=== PATIENT | male | born 1985 | race Caucasian/White ===

== ENCOUNTER 2018-05-28 19:56 | Emergency (ER) | payer OTHER ==
[~2018-05-28] VITALS: Ht 177.8 cm; Wt 76.2 kg
[~2018-05-28 19:56] MED LIST: DENIES MEDS
[2018-05-28 20:18] VITALS: BP 138/78
[2018-05-28] MEDS ORDERED: predniSONE 20 MG TABLET PO ONE (21:30)
[2018-05-28] MEDS ORDERED: diphenhydrAMINE HCL 50 MG/ML VIAL IM ONE (21:30)
[2018-05-28] MEDS ORDERED: diphenhydrAMINE HCL 50 MG/ML VIAL ONE (21:34)
== END 2018-05-28 21:58 | disposition home or self-care (01) ==
LOC: ER 19:57
DX: B35.4 Tinea corporis (principal); F17.200 Nicotine dependence, unspecified, uncomplicated
CPT/HCPCS: 96372; 99283; A4606; J1200; Z7610

== ENCOUNTER 2018-06-06 22:31 | Emergency (ER) | payer OTHER ==
[~2018-06-06] VITALS: Ht 177.8 cm; Wt 75.7 kg
[2018-06-06] MEDS ORDERED: EPINEPHRINE (1:1000) 1 MG/ML AMPUL ONE (23:16)
[2018-06-06] MEDS ORDERED: FAMOTIDINE (20 MG) 20 MG TABLET ONE (23:16)
[2018-06-06] MEDS ORDERED: DEXAMETHASONE SOD PHOSPHATE 4 MG/ML VIAL ONE (23:16)
[2018-06-06] MEDS ORDERED: DEXAMETHASONE SOD PHOSPHATE 4 MG/ML VIAL IM ONE (23:30)
[2018-06-06] MEDS ORDERED: FAMOTIDINE (20 MG) 20 MG TABLET PO ONE (23:30)
[2018-06-06] MEDS ORDERED: EPINEPHRINE (1:1000) MDV 30 MG/30ML VIAL SUBCUT ONE (23:30)
[2018-06-06 23:53] VITALS: BP 118/58
== END 2018-06-06 23:52 | disposition home or self-care (01) ==
LOC: ER 22:34
DX: L50.8 Other urticaria (principal); F17.200 Nicotine dependence, unspecified, uncomplicated; Z87.09 Personal history of other diseases of the respiratory system
CPT/HCPCS: 96372 ×2; 99284; A4606; J0171 ×2; J1100; Z7610

== ENCOUNTER 2018-06-12 22:41 | Inpatient (IN) | payer OTHER ==
[~2018-06-12] VITALS: Ht 177.8 cm; Wt 75.8 kg
--- NOTE | 2018-06-12 22:41 | NUR ---
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 PT STATES HE STOPPED STEROID MEDICATION THAT WAS GIVEN TO HIM AND THE HIVES CAME BACK. PT IS TACHYCARDIC AND HYPERTENSIVE BUT OTHERWISE VSS. PATIENT IS ABLE TO BREATHING WNL BUT WHEN DOING SO THERE IS PAIN ON INSPIRATION. HIVES GENERALIZED ON BODY WITH REDNESS. WILL CONTINUE TO MONITOR FOR ANY CHANGES DURING THE SHIFT.
--- NOTE | 2018-06-12 22:42 | NUR ---
ER MD TYLER AT BEDSIDE FOR EVAL
[2018-06-12] MEDS ORDERED: methylPREDNISolone SOD SUCC 125 MG/2ML VIAL IV ONE (23:00)
[2018-06-12] MEDS ORDERED: MAG HYDROX/AL HYDROX/SIMETH 30 ML UDC PO ONE (23:00)
[2018-06-12] MEDS ORDERED: diphenhydrAMINE HCL 50 MG/ML VIAL IV ONE (23:00)
[2018-06-12] MEDS ORDERED: FAMOTIDINE/PF INJ 20 MG/2 ML VIAL IV ONE ×2 (23:00→23:08)
[2018-06-12] MEDS ORDERED: MORPHINE SULFATE INJ 2 MG/ML DISP.SYRIN IV ONE (23:00)
[2018-06-12] MEDS ORDERED: IV NS 0.9% 1,000 ML BAG IV ONE (23:00)
[2018-06-12] MEDS ORDERED: methylPREDNISolone SOD SUCC 125 MG/2ML VIAL ONE (23:01)
[2018-06-12] MEDS ORDERED: diphenhydrAMINE HCL 50 MG/ML VIAL ONE (23:01)
[2018-06-12] MEDS ORDERED: MORPHINE SULFATE INJ 4 MG/ML DISP.SYRIN ONE (23:01)
--- NOTE | 2018-06-12 23:05 | NUR ---
EKG AT BEDSIDE
[2018-06-12] MEDS ORDERED: MAG HYDROX/AL HYDROX/SIMETH 30 ML UDC ONE (23:08)
[2018-06-12 23:11] LABS: BASOPHILS % (AUTO) 0.2 % (0.0-2.0); EOSINOPHILS % (AUTO) 0.1 % (0.0-6.0); HEMATOCRIT 45 % (39-51); HEMOGLOBIN 14.6 g/dL (13.5-17.5); LYMPHOCYTES # (AUTO) 3.6 /CMM (0.8-4.8); LYMPHOCYTES % (AUTO) 32.2 % (20.0-44.0); MEAN CORPUSCULAR HEMOGLOBIN 31 PG (26.0-33.0); MEAN CORPUSCULAR HGB CONC 32 g/dl (31.0-36.0); MEAN CORPUSCULAR VOLUME 96 fL (80-96); MONOCYTES # (AUTO) 0.4 /CMM (0.1-1.30); MONOCYTES % (AUTO) 3.2 % (2.0-12.0); NEUTROPHILS # (AUTO) 7.2 /CMM (1.8-8.9); NEUTROPHILS % (AUTO) 64.3 % (43.0-81.0); PLATELET COUNT (AUTO) 217 /CMM (150-450); RDW COEFFICIENT OF VARIATION 12.9 (11.5-15.0); WHITE BLOOD COUNT (AUTO) 11.2 K/uL (4.3-11.0)
--- NOTE | 2018-06-12 23:12 | NUR ---
BLOOD SENT TO LAB WITH FLOUR WORKER
--- NOTE | 2018-06-12 23:12 | NUR ---
DR. KATZ PAGED FOR CARDIOLOGY CONSULT.
[2018-06-12 23:33] LABS: CALCIUM, SERUM 8.5 mg/dL (8.5-10.1); CARBON DIOXIDE 25 mmol/L (21-32); CHLORIDE 102 mmol/L (98-107); GLUCOSE 136 mg/dL (74-106); SODIUM SERUM 136 mmol/L (136-145); UREA NITROGEN, BLOOD 22 mg/dL (7-18)
[2018-06-12 23:41] LABS: TROPONIN I < 0.017 ng/mL (0.00-0.056)
[2018-06-12] MEDS ORDERED: KETOROLAC TROMETHAMINE INJ 30 MG/ML VIAL ONE (23:44)
[2018-06-13] VITALS (8 sets, daily range): BP systolic 113–139; BP diastolic 53–76
[2018-06-13] MEDS ORDERED: KETOROLAC TROMETHAMINE INJ 30 MG/ML VIAL IV ONE
[2018-06-13] MEDS ORDERED: ZOLPIDEM TARTRATE 5 MG TABLET PO PRN
[2018-06-13] MEDS ORDERED: ONDANSETRON HCL/PF 4 MG/2 ML VIAL IVP PRN
[2018-06-13] MEDS ORDERED: MORPHINE SULFATE INJ 2 MG/ML DISP.SYRIN IV PRN
[2018-06-13] MEDS ORDERED: Z GUARD REMEDY 2 OZ OINT TP PRN
[2018-06-13] MEDS ORDERED: ACETAMINOPHEN 325 MG TABLET PO PRN
[2018-06-13] MEDS ORDERED: MAG HYDROX/AL HYDROX/SIMETH 30 ML UDC PO PRN
--- NOTE | 2018-06-13 00:16 | NUR ---
TELE [id number]
--- NOTE | 2018-06-13 01:05 | NUR ---
REPORT GIVEN TO TEJAL
--- NOTE | 2018-06-13 01:28 | NUR ---
ADMISSION NOTES: RECEIVED REPORT FROM JOSE BELL. PT CAME TO ER DUE TO HIVES FOR 2WEEKS, WAS PRESCRIBED WITH STEROID BY BARREL LINER, STOPPED TAKING STEROIDS YESTERDAY AND HIVES CAME BACK ASSOCIATED WITH SOB AND CHEST PAIN UPON INSPIRATION. PT WAS BROUGHT TO THE UNIT VIA GURNEY, PLACED IN BED, KEPT COMFORTABLE, PLACED ON TELE MONITORING, SINUS RHYTHM WITH ST ELEVATION, MD AWARE, SAME RESULT WITH EKG IN ER. PT DENIES ANY CHEST PAIN OR SOB AT THIS TIME, STATED HE FELT A LOT BETTER AFTER TAKING THE MEDICATION GIVEN IN E.R. IV ACCESS ON RIGHT AC G18 PATENT AND FLUSHING WELL, NO S/S OF REDNESS OR INFILTRATION NOTED. SKIN ASSESSMENT PERFORMED AND GENERALIZED HIVES NOTED MORE SPECIFICALLY ON PT'S BACK, PHOTOS TAKEN ATTACHED TO CHART. VS TAKEN AND RECORDED, ORIENTED PT TO UNIT POLICY AND HOURLY ROUNDING. DISCUSSED PLAN OF CARE TO THE PT. INVENTORY OF BELONGING COMPLETED BY SILVESTRE ROSEN. SAFETY PRECAUTIONS FOR FALL INITIATED, CALL LIGHT IN REACH, WILL CONTINUE MONITORING PT.
[2018-06-13] MEDS ORDERED: IBUPROFEN 600 MG TABLET PO PRN (02:00)
[2018-06-13] MEDS ORDERED: diphenhydrAMINE HCL 50 MG/ML VIAL IV PRN (02:00)
[2018-06-13] MEDS: IV NS 0.9% 1,000 ML IV PRN ×2 (02:07→16:41)
--- NOTE | 2018-06-13 03:01 | NUR ---
RN NOTES: SEEN PT SLEEPING AT THIS TIME, RESPIRATION EVEN AND UNLABORED, NO FACIAL GRIMACE NOTED
--- NOTE | 2018-06-13 04:00 | NUR ---
RN NOTES: PT REMAINS SINUS RHYTHM WITH ST ELEVATION, PT AWAKE, DENIES ANY CHEST PAIN OR SOB AT THIS TIME, HE STATED HE'S FEELING BETTER, WILL CONTINUE MONITORING PT
--- NOTE | 2018-06-13 05:30 | NUR ---
RN NOTES: NOTED ON SINUS RHYTHM HR [address] ELEVATION, MD AWARE, VS STABLE, PT DENIES ANY CHEST PAIN OR SHORTNESS OF BREATH, WILL CONTINUE MONITORING PT.
[2018-06-13 06:43] LABS: HEMATOCRIT 41 % (39-51); HEMOGLOBIN 13.7 g/dL (13.5-17.5); LYMPHOCYTES # (AUTO) 0.7 /CMM (0.8-4.8); LYMPHOCYTES % (AUTO) 6.9 % (20.0-44.0); MEAN CORPUSCULAR HEMOGLOBIN 32 PG (26.0-33.0); MEAN CORPUSCULAR HGB CONC 34 g/dl (31.0-36.0); MEAN CORPUSCULAR VOLUME 95 fL (80-96); MONOCYTES # (AUTO) 0.1 /CMM (0.1-1.30); NEUTROPHILS # (AUTO) 9.5 /CMM (1.8-8.9); NEUTROPHILS % (AUTO) 92.1 % (43.0-81.0); PLATELET COUNT (AUTO) 173 /CMM (150-450); RDW COEFFICIENT OF VARIATION 13.1 (11.5-15.0); RED BLOOD CELL COUNT(AUTO) 4.26 MIL/uL (4.5-6.0); WHITE BLOOD COUNT (AUTO) 10.3 K/uL (4.3-11.0)
--- NOTE | 2018-06-13 06:44 | NUR ---
RN CLOSING NOTES: PT IN BED, AWAKE, DENIES ANY CHEST PAIN OR DISCOMFORT AT THIS TIME, DENIES ANY SOB, REMAINS ON RA, RESPIRATION EVEN AND UNLABORED, STILL WITH GENERALIZED HIVES, REMAINS SINUS RHYTHM WITH MILD ST ELEVATION HR 67. MD AWARE OF PT'S HEART RHYTHM. IV ACCESS REMAINS PATENT AND FLUSHING WELL, INFUSING WITH NS AT 75ML/HR. FOR CARDIO CONSULT TODAY AND 2D ECHO. VS REMAINS STABLE, NEEDS ATTENDED, SAFETY PRECAUTIONS FOR FALL REMAINS ENGAGED, CALL LIGHT IN REACH, WILL ENDORSE TO DAY RN FOR CONTINUITY OF CARE.
[2018-06-13 06:53] LABS: CALCIUM, SERUM 8.7 mg/dL (8.5-10.1); CARBON DIOXIDE 23 mmol/L (21-32); CHLORIDE 104 mmol/L (98-107); CREATININE 0.9 mg/dL (0.6-1.3); GLUCOSE 162 mg/dL (74-106); MAGNESIUM 2.1 mg/dL (1.8-2.4); PHOSPHORUS 2.4 mg/dL (2.5-4.9); POTASSIUM 4.9 mmol/L (3.5-5.1); SODIUM SERUM 136 mmol/L (136-145); UREA NITROGEN, BLOOD 17 mg/dL (7-18)
[2018-06-13 07:14] LABS: CHOLESTEROL 149 mg/dL (<200); HDL CHOLESTEROL 63 mg/dL (40-60); LDL 78 mg/dL (0-99); TRIGLYCERIDES 56 mg/dL (30-150)
--- NOTE | 2018-06-13 07:15 | NUR ---
RN OPENING NOTES PATIENT RECEIVED AWAKE ALERT AND VERBALLY RESPONSIVE, ABLE TO MAKE NEEDS KNOWN. RESPIRATIONS EVEN AND UNLABORED, DENIES ANY PAIN OR DISCOMFORT AT THIS TIME. IV ACCESS TO RAC PATENT AND INTACT NO REDNESS OR INFILTRATION NOTED. CALL LIGHT WITHIN EASY REACH, KEPT CLEAN DRY AND COMFORTABLE CALL LIGHT WITHIN EASY REACH WILL CONTINUE TO MONITOR
[2018-06-13 07:53] LABS: TROPONIN I < 0.017 ng/mL (0.00-0.056)
[2018-06-13] MEDS: PANTOPRAZOLE 40 MG TABLET.DR PO SCH (08:35)
[2018-06-13] MEDS: COLCHICINE 0.6 MG TABLET PO SCH ×2 (08:36→16:31)
[2018-06-13] MEDS: methylPREDNISolone SOD SUCC 40 MG/ML VIAL IV SCH ×3 (08:36→16:31)
[2018-06-13] MEDS ORDERED: K PHOS NEUTRAL 250 MG TABLET PO ONE (13:00)
[2018-06-13] MEDS: HYDROCODONE/APAP 5/325MG 1 EACH TABLET PO PRN ×2 (16:42→21:39)
--- NOTE | 2018-06-13 18:45 | NUR ---
RN CLOSING NOTES PATIENT AWAKE ALERT AND VERBALLY RESPONSIVE, ABLE TO MAKE NEEDS KNOWN. RESPIRATIONS EVEN AND UNLABORED, DENIES ANY PAIN OR DISCOMFORT AT THIS TIME. IV ACCESS TO RAC PATENT AND INTACT NO REDNESS OR INFILTRATION NOTED. CALL LIGHT WITHIN EASY REACH, KEPT CLEAN DRY AND COMFORTABLE WILL CONTINUE TO MONITOR AND ENDORSE TO NEXT SHIFT
--- NOTE | 2018-06-13 19:30 | NUR ---
BEEF SKINNER OPENING NOTES RECEIVED PATIENT RESTING IN BED, AWAKE ALERT AND VERBALLY RESPONSIVE, ABLE TO MAKE NEEDS KNOWN. RESPIRATIONS EVEN AND UNLABORED. PRN NORCO WAS GIVEN BY AM RN FOR C/O PAIN EARLIER & PT DENIES ANY PAIN @ THIS TIME. IV ACCESS TO RAC PATENT AND INTACT, RUNNING WITH IVF ORDERED. NO REDNESS OR INFILTRATION NOTED. CALL LIGHT WITHIN EASY REACH. WILL CONTINUE TO MONITOR CLOSELY.
[2018-06-13] MEDS: FLUCONAZOLE IN NS,PREMIX 400 MG in PREMIX 1 EA IV SCH ×2 (20:17)
--- NOTE | 2018-06-13 20:50 | NUR ---
EMERGENCY ROOM PHYSICIAN NOTE LAB CALLED TO CLARIFY THE ORDER THAT WHICH HISTOPLASMA TEST NEEDS TO BE DONE, SINCE THERE IS 3 DIFFERENT KINDS OF TESTS. IT WAS ORDERED BY ELIZABETH BAZAN NP. PAGED EVENTS MANAGER ID . WAITING FOR THE CALL BACK.
--- NOTE | 2018-06-13 21:24 | NUR ---
DR. CARDOZA, ID CALLED BACK DR CARDOZA CALLED BACK, CLARIFIED THE HISTOPLASMA ORDER, HISTOPLASMA GALACTOMANNAN ANTIGEN NEEDS TO BE DONE. ALSO INFORMED MD ABOUT PT'S LACTIC ACID BEING BORDERLINE 2.0. NO NEW ORDERS FROM MD @ THIS TIME. WILL CONTINUE TO MONITOR.
--- NOTE | 2018-06-13 21:39 | NUR ---
PRN NORCO GIVEN PT C/O HEADACHE 03/06, WANTED TO TAKE ONLY NORCO @ THIS TIME, SINCE IT WAS EFFECTIVE EARLIER, PER PT. PRN NORCO GIVEN, WILL REASSESS FOR EFFECTIVENESS.
[2018-06-13] MEDS: MAGNESIUM HYDROXIDE 30 ML UDC PO PRN (21:42)
--- NOTE | 2018-06-13 21:42 | NUR ---
PRN MOM GIVEN PT HAD C/O CONSTIPATION & ASKED TO TAKE MEDICINE, PRN MOM GIVEN, WILL REASSESS FOR EFFECTIVENESS.
[2018-06-13 22:15] LABS: BILIRUBIN,DIRECT 0.1 mg/dL (0.0-0.2); BILIRUBIN,TOTAL 0.3 mg/dL (0.2-1.0)
--- NOTE | 2018-06-13 22:37 | NUR ---
SPOKE TO WIPER BLENDER MD LAB CALLED TO INFORM THAT PT'S LACTIC ACID IS 2.1, IT WAS 2.0 & WAS REPEATED. DR MISTRY REVIEWED THE LABS WITH NO NEW ORDER @ THIS TIME. WILL CONTINUE TO MONITOR THE PATIENT CLOSELY.
[2018-06-14] VITALS: BP 137/81
--- NOTE | 2018-06-14 02:15 | NUR ---
ORNAMENTAL RAIL INSTALLER NOTE PT NOTED TO BE SLEEPING COMFORTABLY @ THIS TIME. NO ANTONIO NOTED.
[2018-06-14] MEDS: IV NS 0.9% 1,000 ML IV PRN (06:05)
--- NOTE | 2018-06-14 06:43 | NUR ---
VASCULAR TECHNICIAN CLOSING NOTES PT SLEPT WELL @ NIGHT, AWAKE ALERT AND VERBALLY RESPONSIVE, ABLE TO MAKE NEEDS KNOWN. RESPIRATIONS EVEN AND UNLABORED. ON TELE MONITORING WITH SR 71 WITH BBB. PT DENIES ANY PAIN @ THIS TIME. IV ACCESS TO RAC PATENT AND INTACT, RUNNING WITH IVF ORDERED. NO REDNESS OR INFILTRATION NOTED. BED IN LOW LOCKED POSITION. CALL LIGHT WITHIN EASY REACH. WILL ENDORSE TO AM RN FOR CONTINUITY OF CARE.
--- NOTE | 2018-06-14 07:25 | NUR ---
CONVENIENCE STORE CLERK OPENING NOTES RECEIVED PATIENT IN STABLE CONDITION. IN NO APPARENT DISTRESS. BEDSIDE RAILS ARE UPX2. BED IS LOCKED AND LOWERED. CALL LIGHT IS WITHIN REACH. IV LINE IS INTACT AND PATENT. WILL CONTINUE TO MONITOR.
[2018-06-14 08:00] VITALS: BP 118/63
[2018-06-14 08:01] LABS: HEMATOCRIT 40 % (39-51); HEMOGLOBIN 13.5 g/dL (13.5-17.5); LYMPHOCYTES # (AUTO) 1.3 /CMM (0.8-4.8); LYMPHOCYTES % (AUTO) 8.2 % (20.0-44.0); MEAN CORPUSCULAR HEMOGLOBIN 32 PG (26.0-33.0); MEAN CORPUSCULAR HGB CONC 34 g/dl (31.0-36.0); MEAN CORPUSCULAR VOLUME 96 fL (80-96); MONOCYTES # (AUTO) 0.9 /CMM (0.1-1.30); MONOCYTES % (AUTO) 5.9 % (2.0-12.0); NEUTROPHILS # (AUTO) 13.5 /CMM (1.8-8.9); NEUTROPHILS % (AUTO) 85.9 % (43.0-81.0); PLATELET COUNT (AUTO) 187 /CMM (150-450); RDW COEFFICIENT OF VARIATION 13.5 (11.5-15.0); RED BLOOD CELL COUNT(AUTO) 4.18 MIL/uL (4.5-6.0); WHITE BLOOD COUNT (AUTO) 15.7 K/uL (4.3-11.0)
[2018-06-14] MEDS: methylPREDNISolone SOD SUCC 40 MG/ML VIAL IV SCH ×3 (08:02→16:50)
[2018-06-14] MEDS: PANTOPRAZOLE 40 MG TABLET.DR PO SCH (08:02)
[2018-06-14] MEDS: COLCHICINE 0.6 MG TABLET PO SCH ×2 (08:02→16:50)
[2018-06-14 08:15] LABS: CALCIUM, SERUM 8.4 mg/dL (8.5-10.1); CREATININE 0.6 mg/dL (0.6-1.3); MAGNESIUM 2.2 mg/dL (1.8-2.4); PHOSPHORUS 3.2 mg/dL (2.5-4.9); POTASSIUM 3.7 mmol/L (3.5-5.1)
--- NOTE | 2018-06-14 09:18 | NUR ---
PATIENT REFUSED MORNING MEDICATIONS. EXPLAINED RISKS AND BENEFITS. PATIENT CONTINUES TO REFUSE. Addendum: 06/14/18 at 1557 by BRODY CARVALHO RN INCORRECT PATIENT. DISREGARD NOTE.
--- NOTE | 2018-06-14 14:56 | NUR ---
SPOKE TO LAB TO INFORM THEM THAT DR. GONZALEZ WANTS TO ORDER A [facility]. LAB WILL CARRY OUT ORDER.
[2018-06-14 16:00] VITALS: BP 126/68
[2018-06-14 17:16] LABS: MONOTEST NEGATIVE (NEGATIVE)
--- NOTE | 2018-06-14 18:12 | NUR ---
MS RN CLOSING NOTES PATIENT IS RESTING IN BED IN NO APPARENT DISTRESS. BEDSIDE RAILS ARE UPX2. BED IS LOCKED AND LOWERED. CALL LIGHT IS WITHIN REACH. IV LINE IS INTACT AND PATENT. ALL NEEDS WERE MET. WILL ENDORSE CARE TO JOURNEYMAN OPERATOR ASSISTANT NURSE FOR ANTONIO.
--- NOTE | 2018-06-14 19:30 | NUR ---
RN MS NOTES RECEIVED PATIENT IN BED AWARE. ALERT AND ORIENTED X4. VERBALLY RESPONSIVE. BREATHING EVEN AND UNLABORED. NO SOB NOTED. NO COMPLAINTS OF PAIN OR DISCOMFORT. IV ON RIGHT AC#18 INTACT AND PATENT. SKIN DRY AND WARM TO TOUCH. ALL OTHER NEEDS ATTENDED TO. CALL LIGHT WITHIN REACH. BED ON LOWEST LOCKED POSITION. WILL CONTINUE TO MONITOR.
[2018-06-14 20:00] VITALS: BP 124/67
[2018-06-14] MEDS: FLUCONAZOLE IN NS,PREMIX 400 MG in PREMIX 1 EA IV SCH ×2 (20:19)
--- NOTE | 2018-06-14 21:00 | NUR ---
RN MS NOTES PATIENT COMPLAINED OF PAIN ON HIS IV SITE AND REQUESTED FOR A NEW IV SITE. IV ON RIGHT AC REMOVED AND APPLIED PRESSURE. NEW IV SITE STARTED OF THE LEFT FOREARM #20. GOOD BLOOD RETURN. INTACT AND PATENT.
[2018-06-14] MEDS: HYDROCODONE/APAP 5/325MG 1 EACH TABLET PO PRN (23:50)
--- NOTE | 2018-06-14 23:50 | NUR ---
RN MS NOTES PATIENT COMPLAINED OF HEADACHE 03/06. REQUESTED FOR NORCO. PATIENT WAS GIVEN NORCO. TOLERATED WELL. WILL CONTINUE TO MONITOR EFFECTIVENESS.
--- NOTE | 2018-06-15 06:30 | NUR ---
RN MS CLOSING NOTES PATIENT RESTING IN BED. ALERT AND ORIENTED X4. VERBALLY RESPONSIVE. IN STABLE CONDITION. BREATHING EVEN AND UNLABORED. NO SOB NOTED. NO COMPLAINTS OF PAIN OR DISCOMFORT. IV ON LEFT FOREARM #20 INTACT AND PATENT. SKIN DRY AND WARM TO TOUCH. KEPT CLEAN, AND COMFORTABLE. ALL OTHER NEEDS ATTENDED TO. CALL LIGHT WITHIN REACH. BED ON LOWEST LOCKED POSITION. WILL ENDORSE TO ONCOMING NURSE FOR CONTINUITY OF CARE.
[2018-06-15 06:46] LABS: BASOPHILS % (AUTO) 0.2 % (0.0-2.0); HEMATOCRIT 40 % (39-51); HEMOGLOBIN 13.5 g/dL (13.5-17.5); LYMPHOCYTES # (AUTO) 1.6 /CMM (0.8-4.8); LYMPHOCYTES % (AUTO) 10.6 % (20.0-44.0); MEAN CORPUSCULAR HEMOGLOBIN 32 PG (26.0-33.0); MEAN CORPUSCULAR HGB CONC 33 g/dl (31.0-36.0); MEAN CORPUSCULAR VOLUME 96 fL (80-96); NEUTROPHILS # (AUTO) 12.1 /CMM (1.8-8.9); NEUTROPHILS % (AUTO) 82.2 % (43.0-81.0); PLATELET COUNT (AUTO) 197 /CMM (150-450); RDW COEFFICIENT OF VARIATION 13.4 (11.5-15.0); WHITE BLOOD COUNT (AUTO) 14.7 K/uL (4.3-11.0)
[2018-06-15 07:13] LABS: CALCIUM, SERUM 8.9 mg/dL (8.5-10.1); CREATININE 0.7 mg/dL (0.6-1.3); POTASSIUM 3.9 mmol/L (3.5-5.1)
--- NOTE | 2018-06-15 07:14 | NUR ---
MS RN OPENING NOTES RECEIVED PATIENT IN STABLE CONDITION. IN NO APPARENT DISTRESS. BEDSIDE RAILS ARE UPX2. BED IS LOCKED AND LOWERED. CALL LIGHT IS WITHIN REACH. IV LINE IS INTACT AND PATENT. WILL CONTINUE TO MONITOR.
[2018-06-15 08:00] VITALS: BP 125/66
[2018-06-15] MEDS: methylPREDNISolone SOD SUCC 40 MG/ML VIAL IV SCH ×3 (08:00→16:08)
[2018-06-15] MEDS: PANTOPRAZOLE 40 MG TABLET.DR PO SCH (08:01)
[2018-06-15] MEDS: COLCHICINE 0.6 MG TABLET PO SCH ×2 (08:01→16:12)
[2018-06-15] MEDS: MAGNESIUM HYDROXIDE 30 ML UDC PO PRN (09:19)
--- NOTE | 2018-06-15 09:21 | NUR ---
LUDY ZULUAGA TO GIVE MILK OF ANIL REINA.
[2018-06-15 16:00] VITALS: BP 126/69
--- NOTE | 2018-06-15 18:15 | NUR ---
MS RN CLOSING NOTES PATIENT IS RESTING IN BED. IN NO APPARENT DISTRESS. BEDSIDE RAILS ARE UPX2. BED IS LOCKED AND LOWERED. CALL LIGHT IS WITHIN REACH. IV LINE IS INTACT AND PATENT. WILL ENDORSE CARE TO EXPORT AGENT NURSE FOR ANTONIO.
--- NOTE | 2018-06-15 19:24 | NUR ---
RN MS OPENING NOTES RECEIVED PATIENT IN BED AWAKE. ALERT AND ORIENTED X4. VERBALLY RESPONSIVE. BREATHING EVEN AND UNLABORED. NO SOB NOTED. NO COMPLAINTS OF PAIN OR DISCOMFORT. IV ON LEFT FA #22 INTACT AND PATENT. SKIN DRY AND WARM TO TOUCH. ALL OTHER NEEDS ATTENDED TO. CALL LIGHT WITHIN REACH. BED ON LOWEST LOCKED POSITION. WILL CONTINUE TO MONITOR.
[2018-06-15] MEDS: FLUCONAZOLE IN NS,PREMIX 400 MG in PREMIX 1 EA IV SCH ×2 (19:41)
[2018-06-15 20:40] VITALS: BP 128/65
[2018-06-16 06:25] LABS: BASOPHILS % (AUTO) 0.1 % (0.0-2.0); HEMATOCRIT 42 % (39-51); HEMOGLOBIN 13.9 g/dL (13.5-17.5); LYMPHOCYTES # (AUTO) 1.6 /CMM (0.8-4.8); LYMPHOCYTES % (AUTO) 12.1 % (20.0-44.0); MEAN CORPUSCULAR HEMOGLOBIN 32 PG (26.0-33.0); MEAN CORPUSCULAR HGB CONC 33 g/dl (31.0-36.0); MEAN CORPUSCULAR VOLUME 97 fL (80-96); MONOCYTES # (AUTO) 0.9 /CMM (0.1-1.30); MONOCYTES % (AUTO) 7.1 % (2.0-12.0); NEUTROPHILS # (AUTO) 10.7 /CMM (1.8-8.9); NEUTROPHILS % (AUTO) 80.7 % (43.0-81.0); PLATELET COUNT (AUTO) 201 /CMM (150-450); RDW COEFFICIENT OF VARIATION 13.5 (11.5-15.0); RED BLOOD CELL COUNT(AUTO) 4.34 MIL/uL (4.5-6.0); WHITE BLOOD COUNT (AUTO) 13.2 K/uL (4.3-11.0)
--- NOTE | 2018-06-16 06:42 | NUR ---
RN MS CLOSING NOTES PATIENT RESTING IN BED. ALERT AND ORIENTED X4. VERBALLY RESPONSIVE. IN STABLE CONDITION. BREATHING EVEN AND UNLABORED. NO SOB NOTED. NO COMPLAINTS OF PAIN OR DISCOMFORT. IV ON LEFT FOREARM #22 INTACT AND PATENT. SKIN DRY AND WARM TO TOUCH. KEPT CLEAN, AND COMFORTABLE. ALL OTHER NEEDS ATTENDED TO. CALL LIGHT WITHIN REACH. BED ON LOWEST LOCKED POSITION. WILL ENDORSE TO ONCOMING NURSE FOR CONTINUITY OF CARE.
[2018-06-16 06:45] LABS: CALCIUM, SERUM 8.7 mg/dL (8.5-10.1); CREATININE 0.8 mg/dL (0.6-1.3)
--- NOTE | 2018-06-16 07:30 | NUR ---
RN MS OPENING NOTES PT IN BED AT LOWEST AND LOCKED POSITION, A/O X4, VERBALLY RESPONSIVE, LEFT FOREARM IV INTACT AND PATENT, NO SIGNS OF DISTRESS NOTED, BREATHING EVEN AND UNLABORED, SKIN DRY AND INTACT, PT STABLE, CALL LIGHT WITHIN REACH, WILL CONTINUE TO MONITOR AND ASSESS.
[2018-06-16 08:00] VITALS: BP 121/64
[2018-06-16] MEDS ORDERED: PRED20TA PO (08:13)
[2018-06-16] MEDS: COLCHICINE 0.6 MG TABLET PO SCH (09:00)
[2018-06-16] MEDS: PANTOPRAZOLE 40 MG TABLET.DR PO SCH (09:16)
[2018-06-16] MEDS: methylPREDNISolone SOD SUCC 40 MG/ML VIAL IV SCH (09:16)
--- NOTE | 2018-06-16 10:30 | NUR ---
DEAL ARCHITECT NOTES PT A/O X4, PT TEACHING AND DISCHARGE PAPERWORK PROVIDED, VERBALIZE UNDERSTANDING, ALL BELONGINGS ACCOUNTED FOR, BELONGING LIST SIGNED, PT IN STABLE CONDITION, MD AWARE OF ALL ABNORMAL LABS, PRESCRIPTION PROVIDED TO PT, PERIPHERAL IV AND ID BAND REMOVED, ESCORTED PT TO PARKING LOT.
[2018-06-16 14:15] LABS: *EBV AB VCA, IgM <36.0 U/mL (0.0-35.9); CMV, IgG >10.00 U/mL (0.00-0.59); CMV, IgM <30.0 AU/mL (0.0-29.9)
[2018-06-17 20:08] LABS: *ANA ANTI-CENTROMERE B AB <0.2 AI (0.0-0.9); *ANA ANTI-DNA(DS) AB, QN <1 IU/mL (0-9); *ANA ANTI-JO-1 <0.2 AI (0.0-0.9); *ANA ANTICHROMATIN ANTIBODY <0.2 AI (0.0-0.9); *ANA RNP ANTIBODIES <0.2 AI (0.0-0.9); *ANA SJOGREN'S ANTI-SS-A <0.2 AI (0.0-0.9); *ANA SJOGREN'S ANTI-SS-B <0.2 AI (0.0-0.9); *ANAANTI-SCLERODERMA-70 AB <0.2 AI (0.0-0.9); *ANASMITH AB <0.2 AI (0.0-0.9)
[2018-06-18 13:11] LABS: HIV-2 AB EIA Negative (Neg:<1.00)
== END 2018-06-16 10:30 | disposition home or self-care (01) | DRG 207 ==
LOC: ER 22:43 → TELE 23:59 → MED 06-14 08:23
PROVIDERS: ADMIT Hospitalist; ATTEND Hospitalist
DX: I31.9 Disease of pericardium, unspecified (principal); E87.2 Acidosis; R13.10 Dysphagia, unspecified; I10 Essential (primary) hypertension; D72.829 Elevated white blood cell count, unspecified; F17.210 Nicotine dependence, cigarettes, uncomplicated; L27.1 Localized skin eruption due to drugs and medicaments taken internally; T38.0X5A Adverse effect of glucocorticoids and synthetic analogues, initial encounter; Y92.009 Unspecified place in unspecified non-institutional (private) residence as the place of occurrence of the external cause; R00.0 Tachycardia, unspecified
CPT/HCPCS: 36415; 71045-TC; 80048-TC; 80061-TC; 82247-TC; 82248-TC; 83605-TC; 83735-TC; 84100-TC; 84443-TC; 84484-TC; 85025-TC; 85652-TC; 86140-TC; 86225; 86235; 86308-TC; 86644; 86645; 86663; 86664; 86665; 86702; 87040-TC; 87070-TC; 87081-TC; 93307-TC; A4216; A4606; J1200; J1450; J1885; J2270; J2920; J2930; J3490; J7030; Z7610

== ENCOUNTER 2018-06-24 22:59 | Emergency (ER) | payer OTHER ==
[~2018-06-24] VITALS: Ht 165.1 cm; Wt 74.8 kg
[~2018-06-24 22:59] MED LIST changes: -DENIES MEDS; +PRED20TA PO
--- NOTE | 2018-06-24 23:05 | NUR ---
PT BIBRA C/O ALLERGIC REACTION DIFFUSELY OVER FACE, CHEST, AND ABD. PT REPORTS FEELING LIKE THROAT IS SWELLING BUT NO SIGNS OF ANGIOEDEMA OR SWELLING NOTED. ALEX LOWER EYELIDS SWOLLEN. BURNING PAIN IN CHEST. RESP EVEN UNLABORED. ABLE TO SPEAK FULL SENTENCES EASILY. PT REPORTS HE STOPPED TAKING PREDNISONE ON SATURDAY. MD AT BEDSIDE.
[2018-06-24] MEDS ORDERED: methylPREDNISolone SOD SUCC 125 MG/2ML VIAL ONE (23:26)
[2018-06-24] MEDS ORDERED: methylPREDNISolone SOD SUCC 125 MG/2ML VIAL IV ONE (23:30)
--- NOTE | 2018-06-25 00:08 | NUR ---
RESTING QUIETLY, NAD NOTED. VSS. STILL FEELING SHAKY S/P EPI CROP AND SOIL TECHNICIAN.
--- NOTE | 2018-06-25 00:22 | NUR ---
IV removed. Catheter intact and site benign. Pressure and 4x4 applied to site. No bleeding noted. Patient discharged to home in stable condition. Written and verbal after care instructions given. Patient verbalizes understanding of instruction. AMBULATORY STEADY GAIT. NAD NOTED.
[2018-06-25 00:35] VITALS: BP 150/69
== END 2018-06-25 00:36 | disposition home or self-care (01) ==
LOC: ER 23:00
DX: L50.8 Other urticaria (principal); F17.200 Nicotine dependence, unspecified, uncomplicated; Z87.09 Personal history of other diseases of the respiratory system; Z98.890 Other specified postprocedural states
CPT/HCPCS: 96374; 99284; 99406; A4606; J2930; Z7610

== ENCOUNTER 2018-12-04 01:20 | Emergency (ER) | payer OTHER ==
[~2018-12-04] VITALS: Ht 175.3 cm; Wt 79.4 kg
--- NOTE | 2018-12-04 01:25 | NUR ---
PT BIB RA. COMP OF "HAVING A SORE THROAT 6X DAYS". NO SOB NOTED. NO ACUTE DISTRESS NOTED. -N/V. -DIZZINESS. PT AOX4. AMBULATORY W.STEADY GAIT. AWAITING MD VIRAMONTES.
[2018-12-04] MEDS ORDERED: IBUPROFEN 400 MG TABLET ONE (01:58)
[2018-12-04] MEDS ORDERED: IBUPROFEN 400 MG TABLET PO ONE (02:00)
--- NOTE | 2018-12-04 02:00 | NUR ---
PT ABLE TO SWALLOW MEDICATIONS WITH EASE. 25ML WATER GIVEN. PT TOLERATED WELL.
[2018-12-04 02:06] VITALS: BP 152/77
== END 2018-12-04 06:34 | disposition home or self-care (01) ==
LOC: ER 01:22
DX: J02.9 Acute pharyngitis, unspecified (principal); F17.200 Nicotine dependence, unspecified, uncomplicated; Z98.890 Other specified postprocedural states; Z79.899 Other long term (current) drug therapy
CPT/HCPCS: 87070; 87880; 99283; A4606; 86403-TC

== ENCOUNTER 2019-04-05 11:16 | Emergency (ER) | payer OTHER ==
[~2019-04-05] VITALS: Ht 180.3 cm; Wt 74.4 kg
[2019-04-05 11:28] VITALS: BP 118/73
== END 2019-04-05 12:24 | disposition home or self-care (01) ==
LOC: ER 11:17
DX: M54.6 Pain in thoracic spine (principal); J93.9 Pneumothorax, unspecified; F17.200 Nicotine dependence, unspecified, uncomplicated; Z71.6 Tobacco abuse counseling; Z98.890 Other specified postprocedural states
CPT/HCPCS: 71045-TC

== ENCOUNTER 2019-04-05 23:02 | Emergency (ER) | payer OTHER ==
[~2019-04-05] VITALS: Ht 177.8 cm; Wt 77.1 kg
--- NOTE | 2019-04-05 23:20 | NUR ---
BIB SELF FROM HOME. AAOX4. NO RESP DISTRESS. AMBULATORY. C/O LEFT UPPER BACK AND L SHOUDER PAIN 04/06. PT STATES THE HE HAD X3 EPISODE OF PNEUMOTHORAX IN THE PAST AND IT FEELS THE SAME. REPORTS PAIN UPON INSPIRATIO. PT ASLO REPORTS THAT HE HAS BEEN HERE EARLIER FOR THE SAME THING BUT GOT CLEAR. PT IS HEAR BECAUSE THE PAIN IS WORSENING. TO ER ED 8. AT [facility] FOR EVAL
--- NOTE | 2019-04-05 23:27 | NUR ---
EKG AT [facility] AND PT BEING WHEELED TO CT IN [facility]
[2019-04-05] MEDS ORDERED: IBUPROFEN 400 MG TABLET PO ONE (23:30)
[2019-04-05] MEDS ORDERED: IBUPROFEN 400 MG TABLET ONE (23:34)
[2019-04-06 00:11] LABS: BASOPHILS % (AUTO) 0.5 % (0.0-2.0); EOSINOPHILS % (AUTO) 2.5 % (0.0-6.0); HEMATOCRIT 37 % (39-51); HEMOGLOBIN 12.6 g/dL (13.5-17.5); LYMPHOCYTES # (AUTO) 2.1 /CMM (0.8-4.8); LYMPHOCYTES % (AUTO) 40.4 % (20.0-44.0); MEAN CORPUSCULAR HGB CONC 34 g/dl (31.0-36.0); MEAN CORPUSCULAR VOLUME 93 fL (80-96); MONOCYTES # (AUTO) 0.5 /CMM (0.1-1.30); MONOCYTES % (AUTO) 9.9 % (2.0-12.0); NEUTROPHILS # (AUTO) 2.4 /CMM (1.8-8.9); NEUTROPHILS % (AUTO) 46.7 % (43.0-81.0); PLATELET COUNT (AUTO) 144 /CMM (150-450); RED BLOOD CELL COUNT(AUTO) 3.94 MIL/uL (4.5-6.0); WHITE BLOOD COUNT (AUTO) 5.2 K/uL (4.3-11.0)
[2019-04-06 00:18] LABS: CALCIUM, SERUM 8.7 mg/dL (8.5-10.1); CARBON DIOXIDE 25 mmol/L (21-32); CHLORIDE 105 mmol/L (98-107); CREATININE 0.8 mg/dL (0.6-1.3); GLUCOSE 132 mg/dL (74-106); POTASSIUM 3.6 mmol/L (3.5-5.1); SODIUM SERUM 139 mmol/L (136-145); UREA NITROGEN, BLOOD 24 mg/dL (7-18)
[2019-04-06 00:24] LABS: ALANINE AMINOTRANSFERASE 49 U/L (12-78); ALBUMIN 3.7 g/dL (3.4-5.0); ALKALINE PHOSPHATASE 62 U/L (46-116); ASPARTATE AMINOTRANSFERASE 25 U/L (15-37); BILIRUBIN,DIRECT 0.1 mg/dL (0.0-0.2); BILIRUBIN,TOTAL 0.3 mg/dL (0.2-1.0); TOTAL PROTEIN, SERUM 6.8 g/dL (6.4-8.2)
--- NOTE | 2019-04-06 01:15 | NUR ---
Patient discharged to home in stable condition. Written and verbal after care instructions given. Patient verbalizes understanding of instruction. Pt ambulatory with a steady gait
[2019-04-06 01:16] VITALS: BP 111/61
== END 2019-04-06 01:21 | disposition home or self-care (01) ==
LOC: ER 23:06
DX: I31.9 Disease of pericardium, unspecified (principal); J93.83 Other pneumothorax; F17.210 Nicotine dependence, cigarettes, uncomplicated; Z71.6 Tobacco abuse counseling; Z99.0 Dependence on aspirator; Z98.890 Other specified postprocedural states
CPT/HCPCS: 36415; 71250-TC; 80048-TC; 80076-TC; 84484-TC; 85025-TC; 85652-TC

== ENCOUNTER 2021-04-12 08:05 | Emergency (ER) | payer OTHER ==
[~2021-04-12] VITALS: Ht 177.8 cm; Wt 74.8 kg
[2021-04-12] MEDS ORDERED: SUMATRIPTAN SUCCINATE 6 MG/0.5 ML VIAL SQ ONE ×2 (08:30→08:38)
[2021-04-12] MEDS ORDERED: METOCLOPRAMIDE HCL 10 MG/2 ML VIAL IV ONE (08:30)
[2021-04-12] MEDS ORDERED: IV NS 0.9% 1,000 ML BAG IV ONE (08:30)
--- NOTE | 2021-04-12 08:30 | NUR ---
Patient from home, c/o of headache and nausea for 24 hrs, a/o x4, no vomiting, no sob, VS, safety measures initiated, will continue to monitor.
--- NOTE | 2021-04-12 08:36 | NUR ---
IV access on RFA #20, patient was brought in for CT of head.
[2021-04-12] MEDS ORDERED: METOCLOPRAMIDE HCL 10 MG/2 ML VIAL ONE (08:38)
--- NOTE | 2021-04-12 08:47 | NUR ---
all due meds given, at bedside, patient in stable condition, will continue to monitor.
[2021-04-12] MEDS ORDERED: KETOROLAC TROMETHAMINE 15 MG/ML VIAL ONE (08:57)
[2021-04-12] MEDS ORDERED: KETOROLAC TROMETHAMINE INJ 30 MG/ML VIAL IV ONE (09:00)
[2021-04-12] MEDS ORDERED: METO-295 PO (09:46)
[2021-04-12] MEDS ORDERED: SUMA100T16 PO (09:46)
[2021-04-12 09:56] VITALS: BP 134/92
== END 2021-04-12 09:56 | disposition home or self-care (01) ==
LOC: ER 08:08
DX: R51.9 Headache, unspecified (principal); R11.0 Nausea; F17.200 Nicotine dependence, unspecified, uncomplicated; Z98.890 Other specified postprocedural states; Z79.899 Other long term (current) drug therapy
CPT/HCPCS: 70450; 96361; 96372; 96374; 96375; 99285; J1885; J2765; J3030

== ENCOUNTER 2022-06-20 08:49 | Emergency (ER) | payer MEDICAID, OTHER ==
[~2022-06-20] VITALS: Ht 177.8 cm; Wt 77.1 kg
[~2022-06-20 08:49] MED LIST changes: +METO-295 PO; +SUMA100T16 PO
[2022-06-20 09:02] VITALS: BP 128/84
[2022-06-20] MEDS ORDERED: TRIA15OI2 TP (09:12)
== END 2022-06-20 09:34 | disposition home or self-care (01) ==
LOC: ER 08:52
DX: R21 Rash and other nonspecific skin eruption (principal); F17.200 Nicotine dependence, unspecified, uncomplicated; Z98.890 Other specified postprocedural states; Z79.899 Other long term (current) drug therapy

== ENCOUNTER 2023-10-29 13:49 | Emergency (ER) | payer MEDICAID ==
[~2023-10-29 13:49] MED LIST changes: +TRIA15OI2 TP
== END 2023-10-29 15:28 | disposition left against medical advice (07) ==
LOC: ER 14:00
DX: Z20.822 Contact with and (suspected) exposure to COVID-19 (principal); Z53.21 Procedure and treatment not carried out due to patient leaving prior to being seen by health care provider

== ENCOUNTER 2024-05-01 10:47 | Emergency (ER) | payer MEDICAID, OTHER ==
[~2024-05-01] VITALS: Ht 175.3 cm; Wt 74.8 kg
[2024-05-01] MEDS ORDERED: KETOROLAC TROMETHAMINE INJ 30 MG/ML VIAL ONE (11:30)
[2024-05-01] MEDS ORDERED: SUMATRIPTAN SUCCINATE 6 MG/0.5 ML VIAL SQ ONE (11:30)
[2024-05-01] MEDS: SUMATRIPTAN SUCCINATE 6 MG/0.5 ML VIAL SQ ONE (11:39)
[2024-05-01] MEDS: KETOROLAC TROMETHAMINE INJ 30 MG/ML VIAL IM ONE (11:39)
[2024-05-01 11:42] LABS: BASOPHILS % (AUTO) 0.7 % (0.0-2.0); EOSINOPHILS # (AUTO) 0.1 K/uL (0.0-0.7); EOSINOPHILS % (AUTO) 2.9 % (0.0-6.0); HEMATOCRIT 42 % (39-51); HEMOGLOBIN 14.5 g/dL (13.5-17.5); LYMPHOCYTES # (AUTO) 1.8 K/uL (0.8-4.8); LYMPHOCYTES % (AUTO) 36.4 % (20.0-44.0); MEAN CORPUSCULAR HEMOGLOBIN 33 PG (26.0-33.0); MEAN CORPUSCULAR HGB CONC 35 g/dl (31.0-36.0); MEAN CORPUSCULAR VOLUME 94 fL (80-96); MONOCYTES # (AUTO) 0.6 K/uL (0.1-1.30); MONOCYTES % (AUTO) 12.5 % (2.0-12.0); NEUTROPHILS # (AUTO) 2.4 K/uL (1.8-8.9); NEUTROPHILS % (AUTO) 47.5 % (43.0-81.0); PLATELET COUNT (AUTO) 201 K/uL (150-450); RED CELL DISTRIBUTION WIDTH 14.2 % (11.5-15.0)
[2024-05-01 11:53] LABS: CALCIUM, SERUM 9.6 mg/dL (8.5-10.1); CARBON DIOXIDE 24 mmol/L (21-32); CHLORIDE 103 mmol/L (98-107); CREATININE 0.7 mg/dL (0.6-1.3); GLUCOSE 95 mg/dL (74-106); POTASSIUM 4.6 mmol/L (3.5-5.1); SODIUM SERUM 138 mmol/L (136-145); UREA NITROGEN, BLOOD 18 mg/dL (7-18)
[2024-05-01 12:06] LABS: NT-PRO BNP 17 pg/mL (0-125)
[2024-05-01 16:14] VITALS: BP 128/86; TEMP 98.6; O2SAT 98
== END 2024-05-01 16:20 ==
LOC: ER 10:56
DX: R07.89 Other chest pain (principal); F17.200 Nicotine dependence, unspecified, uncomplicated; Z98.890 Other specified postprocedural states; Z79.899 Other long term (current) drug therapy
CPT/HCPCS: 99285; 71250; 96372 ×2; 93005; 85025; 80048; 36415; 84484 ×2; 83880; J3030; J1885

== ENCOUNTER 2025-01-09 22:45 | Emergency (ER) | payer BC, OTHER ==
[~2025-01-09] VITALS: Ht 175.3 cm; Wt 81.6 kg
[2025-01-09] MEDS ORDERED: SUMATRIPTAN SUCCINATE 6 MG/0.5 ML VIAL SQ ONE (23:27)
[2025-01-09] MEDS ORDERED: diphenhydrAMINE HCL 50 MG/ML VIAL ONE (23:27)
[2025-01-09] MEDS: SUMATRIPTAN SUCCINATE 6 MG/0.5 ML VIAL SQ ONE (23:42)
[2025-01-09 23:51] LABS: BASOPHILS % (AUTO) 0.5 % (0.0-2.0); EOSINOPHILS # (AUTO) 0.3 K/uL (0.0-0.7); HEMATOCRIT 38 % (39-51); HEMOGLOBIN 13.3 g/dL (13.5-17.5); LYMPHOCYTES # (AUTO) 2.8 K/uL (0.8-4.8); LYMPHOCYTES % (AUTO) 42.1 % (20.0-44.0); MEAN CORPUSCULAR HEMOGLOBIN 33 PG (26.0-33.0); MEAN CORPUSCULAR HGB CONC 35 g/dl (31.0-36.0); MEAN CORPUSCULAR VOLUME 94 fL (80-96); MONOCYTES # (AUTO) 0.6 K/uL (0.1-1.30); MONOCYTES % (AUTO) 9.1 % (2.0-12.0); NEUTROPHILS % (AUTO) 44.3 % (43.0-81.0); PLATELET COUNT (AUTO) 175 K/uL (150-450); RED BLOOD CELL COUNT(AUTO) 4.06 MIL/uL (4.5-6.0); RED CELL DISTRIBUTION WIDTH 13.6 % (11.5-15.0); WHITE BLOOD COUNT (AUTO) 6.7 K/uL (4.3-11.0)
[2025-01-09] MEDS: diphenhydrAMINE HCL 50 MG/ML VIAL IV ONE (23:54)
[2025-01-09 23:59] LABS: CREATININE 1.3 mg/dL (0.6-1.3); POTASSIUM 4.4 mmol/L (3.5-5.1)
[2025-01-10 00:06] LABS: INR 1.03 (0.91-1.10); PARTIAL THROMBOPLASTIN TIME 26.3 SEC (24.3-34.3); PROTHROMBIN TIME 10.9 SECS (9.2-11.1)
[2025-01-10] MEDS ORDERED: SUMA100T16 PO (00:26)
[2025-01-10] MEDS ORDERED: IBUP-1490 PO (00:26)
[2025-01-10 00:47] VITALS: BP 125/78; TEMP 98.2; O2SAT 100
== END 2025-01-10 00:48 | disposition home or self-care (01) ==
LOC: ER 22:45
DX: R51.9 Headache, unspecified (principal); R03.0 Elevated blood-pressure reading, without diagnosis of hypertension; E03.9 Hypothyroidism, unspecified; F17.200 Nicotine dependence, unspecified, uncomplicated; Z79.52 Long term (current) use of systemic steroids
CPT/HCPCS: 99285; 96374; 70450; 85025; 80048; 36415; 85730; 96372; J1200; J3030